=== PATIENT | female | born 2000 | race Caucasian/White ===

== ENCOUNTER 2019-06-13 15:36 | Emergency (ER) | payer OTHER ==
--- NOTE | 2019-06-13 15:48 | ER Document Report ---
ED Medical Screen (RME) - General Chief Complaint: Vaginal Bleeding Stated Complaint: VAGINAL BLEEDING Time Seen by Provider: 06/13/19 15:46 Mode of Arrival: Ambulatory Information source: Patient Notes: 19-year-old female presents to ED for complaint of note menstrual cycle in 3 months. She states last night she started having abdominal cramping and light bleeding. She states she has blood when she wipes but not on the pad that she has on. She states she has had some positive and some negative urine test. Medical history she has had her tongue clipped tonsils removed wisdom teeth removed ganglion cyst removed and a . She is alert oriented respirations regular and unlabored speaking in full sentences walks with even steady gait. I have greeted and performed a rapid initial assessment of this patient. A comprehensive ED assessment and evaluation of the patient, analysis of test results and completion of medical decision making process will be conducted by an additional ED providers. Dictation of this chart was performed using voice recognition software; therefore, there may be some unintended grammatical errors. - Related Data Allergies/Adverse Reactions: Latex, Natural Rubber Allergy (Verified 06/13/19 15:38) Sulfa (Sulfonamide Antibiotics) Allergy (Verified 06/13/19 15:38) Physical Exam - Vital signs Vitals: Temp Pulse Resp BP Pulse Ox 98.4 F 86 15 150/70 H 95 06/13/19 15:40 06/13/19 15:40 06/13/19 15:40 06/13/19 15:40 06/13/19 15:40 Course - Vital Signs Vital signs: Temp Pulse Resp BP Pulse Ox 98.4 F 86 15 150/70 H 95 06/13/19 15:40 06/13/19 15:40 06/13/19 15:40 06/13/19 15:40 06/13/19 15:40
[2019-06-13 16:35] LABS: APPEARANCE,URINE SLIGHTLY-CLOUDY; BILIRUBIN,URINE NEGATIVE (NEGATIVE); COLOR,URINE YELLOW; GLUCOSE, URINE NEGATIVE (NEGATIVE); KETONES,URINE NEGATIVE (NEGATIVE); LEUKOCYTE ESTERASE,URINE TRACE (NEGATIVE); NITRITE,URINE NEGATIVE (NEGATIVE); PROTEIN,URINE NEGATIVE (NEGATIVE); URINE SPECIFIC GRAVITY 1.023; UROBILINOGEN,URINE NEGATIVE mg/dL (<2.0)
[2019-06-13 16:37] LABS: ABSOLUTE BASOPHILS # (AUTO) 0.1 10^3/uL (0.0-0.2); ABSOLUTE EOSINOPHILS # (AUTO) 0.1 10^3/uL (0.0-0.6); ABSOLUTE LYMPHOCYTES (AUTO) 4.5 10^3/uL (0.5-4.7); ABSOLUTE MONOCYTES (AUTO) 0.6 10^3/uL (0.1-1.4); ABSOLUTE NEUT (AUTO) 6.4 10^3/uL (1.7-8.2); BASOPHILS % (AUTO) 0.9 % (0-2); EOSINOPHILS % (AUTO) 1.1 % (0-6); HEMATOCRIT 41.6 % (36.0-47.0); HEMOGLOBIN 14.1 g/dL (12.0-15.5); LYMPHOCYTES % (AUTO) 38.7 % (13-45); MEAN CORPUSCULAR VOLUME 85 fl (80-97); MONOCYTES % (AUTO) 4.7 % (3-13); PLATELET COUNT 221 10^3/uL (150-450); RED BLOOD COUNT 4.88 10^6/uL (3.72-5.28); RED CELL DISTRIBUTION WIDTH 12.7 % (11.5-14.0); SEGMENTED NEUTROPHILS % (AUTO) 54.6 % (42-78); TOTAL CELLS COUNTED % (AUTO) 100 %; WHITE BLOOD COUNT 11.6 10^3/uL (4.0-10.5)
[2019-06-13 16:55] LABS: ALBUMIN 4.5 g/dL (3.5-5.0); ALKALINE PHOSPHATASE 86 U/L (38-126); ANION GAP 8 (5-19); ASPARTATE AMINO TRANSFERASE 44 U/L (14-36); BILIRUBIN,DIRECT 0.4 mg/dL (0.0-0.4); BILIRUBIN,TOTAL 0.4 mg/dL (0.2-1.3); BLOOD UREA NITROGEN 9 mg/dL (7-20); CALCIUM 9.5 mg/dL (8.4-10.2); CARBON DIOXIDE 27 mmol/L (22-30); CHLORIDE 105 mmol/L (98-107); GLUCOSE 114 mg/dL (75-110); POTASSIUM 4.2 mmol/L (3.6-5.0); TOTAL PROTEIN 7.5 g/dL (6.3-8.2)
--- NOTE | 2019-06-13 16:57 | ER Document Report ---
ED General - General Chief Complaint: Vaginal Bleeding Stated Complaint: VAGINAL BLEEDING Time Seen by Provider: 06/13/19 15:46 Mode of Arrival: Ambulatory - HPI Notes: 19-year-old female presents the ED for evaluation of vaginal bleeding and cramping that she noticed started last night, states she has not had a menstrual cycle in over 3 months. Reports she has had a history of some positive some negative urinary test within the last 3 months. Has not tried any [id number] medications. Is not been seen by her provider for this issue. Denies fevers, chills, chest pain,palpitations, shortness of breath, dyspnea, nausea, vomiting, diarrhea, abdominal pain, hematuria,blurred vision, double vision, loss of vision, speech changes, LH, dizziness, syncope, headaches, wheezing, ST, URI, neck pain, weakness, bowel or bladder dysfunction, saddle anesthesia, numbness or tingling in bilateral upper or lower extremities equally, muscle paralysis, weakness in bilateral upper or lower extremities equally or rash. - Related Data Allergies/Adverse Reactions: Latex, Natural Rubber Allergy (Verified 06/13/19 15:38) Sulfa (Sulfonamide Antibiotics) Allergy (Verified 06/13/19 15:38) Past Medical History - General Information source: Patient Last Menstrual Period: 03/30/19 - Social History Smoking Status: Never Smoker Frequency of alcohol use: Rare Drug Abuse: None Family History: Reviewed & Not Pertinent Patient has suicidal ideation: No Patient has homicidal ideation: No Renal/ Medical History: Denies: Hx Peritoneal Dialysis Past Surgical History: Reports: Hx Section, Hx Oral Surgery, Hx Tonsillectomy Review of Systems - Review of Systems Constitutional: No symptoms reported EENT: No symptoms reported Cardiovascular: No symptoms reported Respiratory: No symptoms reported Gastrointestinal: No symptoms reported Genitourinary: No symptoms reported Female Genitourinary: See HPI Musculoskeletal: No symptoms reported Skin: No symptoms reported Hematologic/Lymphatic: No symptoms reported Neurological/Psychological: No symptoms reported Physical Exam - Vital signs Vitals: Temp Pulse Resp BP Pulse Ox 98.4 F 86 15 150/70 H 95 06/13/19 15:40 06/13/19 15:40 06/13/19 15:40 06/13/19 15:40 06/13/19 15:40 - Notes Notes: PHYSICAL EXAMINATION: GENERAL: Well-appearing, well-nourished and in no acute distress. HEAD: Atraumatic, normocephalic. EYES: Pupils equal round and reactive to light, extraocular movements intact, conjunctiva are normal. ENT: Nares patent, oropharynx clear without exudates. Moist mucous membranes. NECK: Normal range of motion, supple without lymphadenopathy LUNGS: Breath sounds clear to auscultation bilaterally and equal. No wheezes rales or rhonchi. HEART: Regular rate and rhythm without murmurs ABDOMEN: Soft, nontender, nondistended abdomen. No guarding, no rebound. No masses appreciated. Female : External genitalia without erythema, exudate or discharge. Vaginal vault is without discharge. Cervix is of normal color without lesion. Uterus is noted to be of normal size and nontender. No cervical motion tenderness is seen. No masses are palpated. scant blood in the vaginal vault without clots, os closed, no adnexal tenderness or mass Musculoskeletal: Normal range of motion, no pitting or edema. No cyanosis. NEUROLOGICAL: Cranial nerves grossly intact. Normal speech, normal gait. Normal sensory, motor exams PSYCH: Normal mood, normal affect. SKIN: Warm, Dry, normal turgor, no rashes or lesions noted. Course - Re-evaluation Re-evalutation: 06/13/19 18:37 Afebrile vital stable no distress. Nurse's notes reviewed. CBC negative for leukocytosis or anemia, CMP negative and unremarkable for any hepatic or renal dysfunction, no electrolyte disturbances. Urinalysis does show some leukoesterase, noted hematuria. Ultrasound negative for ectopic , we will visualize left ovary. Beta hCG negative. wet moumt does show BV, negative for yeast or trichomonas. GC is pending. Follow-up with CREATIVE SERVICES DIRECTOR and primary care provider as needed. After performing a Medical Screening Examination, I estimate there is LOW risk for ACUTE APPENDICITIS, BOWEL OBSTRUCTION, ACUTE CHOLECYSTITIS, PERFORATED DIVERTICULITIS, INCARCERATED HERNIA, PANCREATITIS, PELVIC INFLAMMATORY DISEASE, PERFORATED ULCER, ECTOPIC , or TUBO- OVARIAN ABSCESS, thus I consider the discharge disposition reasonable. Also, there is no evidence or peritonitis, sepsis, or toxicity. I have reevaluated this patient multiple times and no significant life threatening changes are noted. The patient and I have discussed the diagnosis and risks, and we agree w ith discharging home with close follow-up with the understanding that symptoms and presentations can change. We also discussed returning to the Emergency Department immediately if new or worsening symptoms occur. We have discussed the symptoms which are most concerning (e.g., bloody stool, fever, changing or worsening pain, vomiting) that necessitate immediate return. - Vital Signs Vital signs: Temp Pulse Resp BP Pulse Ox 98.4 F 86 15 150/70 H 95 06/13/19 15:40 06/13/19 15:40 06/13/19 15:40 06/13/19 15:40 06/13/19 15:40 - Laboratory Result Diagrams: 06/13/19 16:07 06/13/19 16:07 Laboratory results interpreted by me: 06/13/19 06/13/19 06/13/19 16:07 16:07 16:07 WBC 11.6 H Glucose 114 H AST 44 H Urine Blood LARGE H Ur Leukocyte Esterase TRACE H Discharge - Discharge Clinical Impression: Bacterial vaginitis, Vaginal bleeding Condition: Stable Disposition: HOME, SELF-CARE Instructions: Vaginal Bleeding ([facility]), Vaginosis, Bacterial ([facility]) Additional Instructions: Your wet mount show that you do have BV, take antibiotics as directed. Do not drink while taking this medication to cause nausea or vomiting. You are not . Your ultrasound was normal. Follow-up with an CREATIVE SERVICES DIRECTOR, referral has been given as well as your primary care provider. Return immediately for any new or worsening symptoms. Follow up with primary care provider, call tomorrow to make followup appointment. Prescriptions: Metronidazole [Flagyl] 500 mg PO BID #14 tablet Forms: Return to Work Referrals: ROBERT PINTO MD [ACTIVE STAFF] - Follow up as needed BETSEY ARAYA MD [ACTIVE STAFF] - Follow up as needed
[2019-06-13 17:45] LABS: BACTERIA (WET MOUNT) 3+ BACTERIA SEEN; RBCS (WET MOUNT) 4+ RBCS SEEN; T.VAGINALIS (WET MOUNT) NO TRICHOMONAS SEEN; WBCS (WET MOUNT) 1+ WBCS SEEN; YEAST (WET MOUNT) NO YEAST SEEN
--- NOTE | 2019-06-13 18:00 | RADIOLOGY REPORT (SQ) ---
EXAM DESCRIPTION: U/S NON OB PEL TV W/DOPPLER COMPLETED DATE/TIME: 06/13/2019 5:50 pm REASON FOR STUDY: pelvic pain and vag bleeding, unsure preg COMPARISON: None. TECHNIQUE: Dynamic and static grayscale images acquired of the pelvis via transvaginal approach and recorded on PACS. Additional selected color Doppler and spectral images recorded. LIMITATIONS: None. FINDINGS: UTERUS: Contour normal. No mass. ENDOMETRIAL STRIPE: No focal or generalized thickening. No masses. CERVIX: No nabothian cysts. RIGHT OVARY AND DOPPLER: Normal size. No worrisome masses. Normal arterial vascular flow without evid ence for torsion. LEFT OVARY AND DOPPLER: Nonvisualized. FREE FLUID: None noted. OTHER: No other significant finding. MEASUREMENTS: UTERUS: 7.4 x 4.5 x 3.3 cm. ENDOMETRIAL STRIPE: 4 mm RIGHT OVARY: 3.6 x 2.4 x 1.5 cm LEFT OVARY: Nonvisualized. IMPRESSION: No ultrasound abnormality of the pelvis to explain pelvic pain or vaginal bleeding. The left ovary is nonvisualized. TECHNICAL DOCUMENTATION: JOB ID: [id number] All Rights Reserved Rev-03/09 Reading location - IP/workstation name: [email or web address]
[2019-06-13 19:11] LABS: CHLAM PCR NOT DETECTED (NOT DETECT)
[2019-06-13 19:15] VITALS: BP 126/70
== END 2019-06-13 19:13 | disposition home or self-care (01) ==
LOC: ER 15:36
DX: N93.9 Abnormal uterine and vaginal bleeding, unspecified (principal); N76.0 Acute vaginitis; B96.89 Other specified bacterial agents as the cause of diseases classified elsewhere; R31.9 Hematuria, unspecified; Z91.040 Latex allergy status; Z88.2 Allergy status to sulfonamides
CPT/HCPCS: 36415; 76830; 80053; 81001; 84702; 85025; 87086; 87210; 87491; 87591; 93976